=== PATIENT | male | born 1955 | race Caucasian/White ===

== ENCOUNTER → 2024-09-15 | Outpatient (CLI) | payer MEDICARE, MEDICAID, SELFPAY ==
--- NOTE | 2024-09-15 15:55 | CT_ITS ---
PROCEDURE: LOW DOSE CT LUNG SCREENING REASON FOR EXAM: Smoker. TECHNIQUE: Low Dose CT Lung Screening without contrast COMPARISON: None. FINDINGS: PULMONARY NODULES: (Only nodules >6mm are reported) Nodules described below are on series unless otherwise specified. Pulmonary Nodules: No concerning pulmonary nodules. Hardware:None Lymph Nodes:No mediastinal hilar or axillary lymphadenopathy. Heart and Vasculature:Normal heart size. No pericardial effusion.Thoracic aorta and pulmonary arteries have normal contours; noncontrast technique limits evaluation. Coronary Artery Calcifications: Mild. Lungs and Airways: The lungs are normally expanded and clear. Right lower lobe calcified granuloma. Mild paraseptal emphysema. Pleura:No pleural effusion. No pneumothorax. Upper Abdomen:Punctate splenic calcifications likely reflecting sequela of prior granulomatous infection. Bones:Degenerative changes of the spine. CT/Low Dose CT Lung Screening IMPRESSION: 1. BASED ON THE ACR LUNG RADS FOR THE MOST SUSPICIOUS NODULE (IF ANY) DESCRIBE D IN THIS REPORT, THE OVERALL LUNG RADS SCORE IS 1. 1 - NEGATIVE. RECOMMEND 12-MONTH SCREENING LDCT.. 2. SMOKING CESSATION COUNSELING IS RECOMMENDED IF THE PATIENT IS STILL SMOKING . 3. OTHER SIGNIFICANT FINDINGSmild paraseptal emphysema. One or more dose reduction techniques were used (e.g., Automated exposure contr ol, adjustment of the mA and/or kV according to patient size, use of iterative reconstruction technique). The following information is provided for reference:Lung-RADS 2021 Assessment C ategories. Additional information involving Lung-RADS is available at www.acr.org. Reading Location: [id number]
== END | disposition home or self-care (01) ==
PROVIDERS: PCP Family Medicine; Referring Provider Family Medicine; Visit Provider Family Medicine
DX: F17.210 Nicotine dependence, cigarettes, uncomplicated (principal)
CPT/HCPCS: 71271

== ENCOUNTER 2024-09-19 15:23 | Outpatient (CLI) | payer MEDICARE, MEDICAID, SELFPAY ==
--- NOTE | 2024-09-19 15:47 | BD_ITS ---
PROCEDURE: DEXA BONE DENSITY STUDY REASON FOR EXAM: M, age 69 y/o . Postmenopausal. TECHNIQUE: DEXA scan of the lumbar spine and both hips. COMPARISON: None. FINDINGS: Lumbar Spine (L1-L4): g/cm2 (0.862)/T-score (-2.1)/Z-score (-1.3) findings are suggestive of osteopenia with a high fracture risk. Left Femur Total: g/cm2 (0.660)/T-score (-2.5)/Z-score (-1.9) Left Femoral Neck: g/cm2 (0.512)/T-score (-3.1)/Z-score (-2.0) Right Femur Total: g/cm2 (0.53)/T-score (-3.3)/Z-score (-2.7) Right Femoral Neck: g/cm2 (0.416)/T-score (-3.8)/Z-score (-2.7) BD/Dexa Bone Density Study IMPRESSION: The patient is considered osteoporosis as outlined below according to [employer] (WHO) criteria with a high fracture risk. Reading Location: [place] [id number]
== END 2024-09-19 23:59 | disposition home or self-care (01) ==
LOC: OPBD 15:42
PROVIDERS: PCP Family Medicine; Referring Provider Family Medicine; Visit Provider Family Medicine
DX: M81.0 Age-related osteoporosis without current pathological fracture (principal); G40.909 Epilepsy, unspecified, not intractable, without status epilepticus; Z79.899 Other long term (current) drug therapy
CPT/HCPCS: 77080

== ENCOUNTER → 2024-10-26 | Outpatient (CLI) | payer MEDICARE, MEDICAID, SELFPAY ==
[2024-10-26 11:05] LABS: Absolute Lymphocyte Count 1.19 X10^3/uL (0.83-4.51); Absolute Neutrophil Count 2.1 X10^3/uL (2.0-7.7); Basophil# 0.04 X10^3/uL; Hematocrit 34.5 % (40-54); Hemoglobin 11.9 g/dL (13.0-16.5); Lymphocyte # 1.19 X10^3/ul (0.83-4.51); Lymphocyte % 31.2 % (19-41); Mean Corp Hgb Conc 34.5 g/dL (32-36); Mean Corpuscular Hgb 37.7 pg (27.0-32.0); Mean Corpuscular Volume 109.2 fL (80-94); Monocyte# 0.42 X10^3/uL; NRBC Flagged by Analyzer 0 % (0-5); Neutrophil # 2.14 X10^3/uL (2.7-7.7); Neutrophil % 56.3 % (47-70); Platelet Count 285 K/mm3 (150-450); RBC Distribution Width CV 12.2 % (11.6-14.6); RBC Distribution Width SD 49.3 fl (35.1-43.9); Red Blood Count 3.16 M/mm3 (4.6-6.2); White Blood Count 3.8 K/mm3 (4.4-11.0)
[2024-10-26 11:26] LABS: Ammonia 21.6 umol/L (16-60)
[2024-10-26 11:27] LABS: Carbamazepine (Tegretol) 6.9 ug/mL (4.0-12.0); Valproic Acid (Depakene) Level 39 ug/mL (50-100)
[2024-10-26 11:29] LABS: ALB/GLOB Ratio 1.7 RATIO (0.9-2.4); AST(SGOT) 26 U/L (<=37); Alanine Aminotransfer ALT/SGPT 23 U/L (<=46); Albumin, Serum 3.9 g/dL (3.4-4.8); Alkaline Phosphatase 60 U/L (40-129); Anion Gap 8 (5-15); BUN 26 mg/dL (4-19); BUN/Creat Ratio 34.3 RATIO (10-20); Chloride 106 mmol/L (98-108); Creatinine, Serum 0.74 mg/dL (0.70-1.20); EST Glomerular Filtration Rate 99 (>60); Globulin 2.3 g/dL (2.2-4.2); Glucose 91 mg/dL (70-99); PSA,Total - Annual Screen 1.49 ng/mL (0.02-4.00); Potassium 4.3 mmol/L (3.3-5.1); Protein, Total 6.2 g/dL (5.9-8.4); Sodium Level 140 mmol/L (133-145); Total Bilirubin 0.27 mg/dL (0.00-1.30)
[2024-10-26 12:05] LABS: Cholesterol 167 mg/dL (<=200); High Density Lipoprotein 72 mg/dL; Low Density Lipoprotein Calc. 80 mg/dL; Triglycerides 73 mg/dL; Very Low Density Lipoprotein 15 mg/dL (5-40); cholesterol:hdl ratio screen 2.31
== END | disposition home or self-care (01) ==
LOC: MFPLAB 08:56
PROVIDERS: PCP Family Medicine; Referring Provider Family Medicine; Visit Provider Family Medicine
DX: G40.909 Epilepsy, unspecified, not intractable, without status epilepticus (principal); H40.9 Unspecified glaucoma; Z12.5 Encounter for screening for malignant neoplasm of prostate; R55 Syncope and collapse
CPT/HCPCS: 36415; 80053; 80061; 80156; 80164; 82140; 84153; 85025; G0103

== ENCOUNTER → 2024-11-27 | Outpatient (CLI) | payer MEDICARE, MEDICAID, SELFPAY ==
[2024-11-27 16:02] LABS: Valproic Acid (Depakene) Level 43 ug/mL (50-100)
== END | disposition home or self-care (01) ==
LOC: MFPLAB 12:03
PROVIDERS: PCP Family Medicine; Referring Provider Family Medicine; Visit Provider Family Medicine
DX: G40.909 Epilepsy, unspecified, not intractable, without status epilepticus (principal)
CPT/HCPCS: 36415; 80164

== ENCOUNTER → 2025-06-15 | Outpatient (CLI) | payer MEDICARE, MEDICAID, SELFPAY ==
--- NOTE | 2025-06-15 16:28 | RAD_ITS ---
PROCEDURE: PA and lateral radiographs of the chest 06/15/2025 REASON FOR EXAM: COPD TECHNIQUE: Procedure Code: RADCXR Modality: DX Procedure: CHEST PA AND LATERAL COMPARISON: CT lung screening low-dose exam dated 09/15/2024 FINDINGS: Hardware: None Heart: Heart size and configuration are within normal limits. Arteriosclerotic vascular disease of the aorta is noted. Mediastinum: Mediastinal silhouette is unremarkable. There is no hilar adenopathy. Pulmonary vasculature is unremarkable. Lungs: Lungs are expanded and clear without evidence of atelectasis, consolidation, effusion or pneumonic infiltrate. The lungs are hyperinflated with flattening of the hemidiaphragms. There does appear to be some emphysematous changes identified in the upper lung haley. Bones: Demineralization of the bony thorax is noted. Spondylosis of the thoracic spine is noted. There is no spondylolisthesis or spondylolysis. 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 RAD/Chest PA and Lateral IMPRESSION: No acute cardiopulmonary process is identified radiographically. Findings suggestive of some underlying COPD. Reading Location: [id number]
[2025-06-15 17:59] LABS: CRP < 3.00 mg/L (0.0-3.0)
== END | disposition home or self-care (01) ==
PROVIDERS: PCP Family Medicine; Referring Provider Family Medicine; Visit Provider Family Medicine
DX: J44.9 Chronic obstructive pulmonary disease, unspecified (principal)
CPT/HCPCS: 36415; 71046; 86140